=== PATIENT | female | born 1955 | race Caucasian/White ===

== ENCOUNTER 2022-12-29 20:42 | Emergency (ER) | payer OTHER ==
[~2022-12-29] VITALS: Ht 157.5 cm; Wt 75.7 kg
[2022-12-29] MEDS ORDERED: METOPROLOL SUCC25 MG PO (21:54)
[2022-12-29] MEDS ORDERED: AMLODIPINE BESYL5 MG PO (21:54)
[2022-12-29] MEDS ORDERED: SIMVASTATIN20 MG PO (21:54)
== END 2022-12-30 00:29 | disposition home or self-care (01) ==
LOC: ER 20:42
DX: S81.012A Laceration without foreign body, left knee, initial encounter (principal); W18.30XA Fall on same level, unspecified, initial encounter; Y93.89 Activity, other specified; Y92.89 Other specified places as the place of occurrence of the external cause; Y99.9 Unspecified external cause status; Z88.6 Allergy status to analgesic agent; Z88.0 Allergy status to penicillin; M54.50 Low back pain, unspecified

== ENCOUNTER 2023-01-08 11:37 | Emergency (ER) | payer OTHER ==
[~2023-01-08] VITALS: Ht 157.5 cm; Wt 75.7 kg
[~2023-01-08 11:37] MED LIST: AMLODIPINE BESYL5 MG PO; METOPROLOL SUCC25 MG PO; SIMVASTATIN20 MG PO
== END 2023-01-08 13:33 | disposition home or self-care (01) ==
LOC: ER 11:37
DX: Z48.02 Encounter for removal of sutures (principal); E78.00 Pure hypercholesterolemia, unspecified; I10 Essential (primary) hypertension; Z88.6 Allergy status to analgesic agent; Z88.0 Allergy status to penicillin

== ENCOUNTER 2025-08-12 13:00 | Outpatient (CLI) | payer OTHER | END 2025-08-12 13:07 | disposition home or self-care (01) | LOC: SONOGRAMA 13:00 | PROVIDERS: ATTEND Family Medicine | DX: M25.511 Pain in right shoulder (principal) ==